=== PATIENT | female | born 1965 | race Caucasian/White ===

== ENCOUNTER 2017-09-30 16:28 | Emergency (ER) | payer BC ==
[2017-09-30] MEDS ORDERED: IV NORMAL SALINE 1,000ML 1,000 ML IV SCH (16:45)
[2017-09-30] MEDS ORDERED: INSULIN REGULAR 100 UNIT/ML 10ML VIAL. IV ONE (16:45)
[2017-09-30] MEDS ORDERED: 0.9 % SODIUM CHLORIDE 10 ML DISP.SYRIN. IV PRN (16:45)
[2017-09-30 17:20] LABS: BASO # 0.1 x10^3/uL (0.0-0.2); BASO % 1 % (0-3); EOS # 0.1 x10^3/uL (0.0-0.7); EOS % 1 % (0-3); HEMATOCRIT 43.9 % (36.0-47.0); HEMOGLOBIN 14.8 g/dL (12.0-15.5); LYMPH % 30 % (24-48); MEAN CORPUSCULAR HEMOGLOBIN 30 pg (25-35); MEAN CORPUSCULAR HGB CONC 34 g/dL (31-37); MEAN CORPUSCULAR VOLUME 88 fL (79-100); MONO # 0.6 x10^3/uL (0.0-1.1); MONO % 6 % (0-9); NEUT # 6.2 x10^3uL (1.8-7.7); NEUT % 62 % (31-73); PLATELET COUNT 372 x10^3/uL (140-400); RED BLOOD COUNT 5.01 x10^6/uL (3.50-5.40)
[2017-09-30 17:36] LABS: ALBUMIN 3.5 g/dL (3.4-5.0); ALBUMIN/GLOBULIN RATIO 0.9 (1.0-1.7); CALCIUM 9.5 mg/dL (8.5-10.1); GFR 58.7; POTASSIUM 4.1 mmol/L (3.5-5.1); TOTAL BILIRUBIN 0.3 mg/dL (0.2-1.0); TOTAL PROTEIN 7.3 g/dL (6.4-8.2)
--- NOTE | 2017-09-30 17:38 | PHYS DOC ---
Past History Past Medical History: Anxiety, Diabetes, Fibromyalgia, Hypertension, Hypothyroid, Other Past Surgical History: Cholecystectomy, Tonsillectomy, Tubal ligation, Other Alcohol Use: None Drug Use: None Adult General Chief Complaint Chief Complaint: HYPERGLYCEMIA HPI HPI 52-year-old female patient was seen by her primary care physician because of high blood sugar and Hbg A1c and sent to ER for treatment. Patient states she doesn't take blood sugar medication for more than one year because with forming make here feeling very bad. Denies nausea, vomiting, fever and chills, urinary problems, weakness, dizziness. Patient states her hemoglobin A1c was 14 and her blood sugar was more than 400 at doctor's office. Review of Systems Review of Systems Constitutional: Denies fever or chills [] Eyes: Denies change in visual acuity, redness, or eye pain [] HENT: Denies nasal congestion or sore throat [] Respiratory: Denies cough or shortness of breath [] Cardiovascular: No additional information not addressed in HPI [] GI: Denies abdominal pain, nausea, vomiting, bloody stools or diarrhea [] : Denies dysuria or hematuria [] Musculoskeletal: Denies back pain or joint pain [] Integument: Denies rash or skin lesions [] Neurologic: Denies headache, focal weakness or sensory changes [] Endocrine: Denies polyuria or polydipsia [] All other systems were reviewed and found to be within normal limits, except as documented in this note. Current Medications Current Medications Current Medications Medications (Trade) Dose Ordered Sig/Vargas Start Time Stop Time Status Last Admin Dose Admin Insulin Human Regular (NovoLIN R) 10 unit 1X ONCE 09/30/17 16:45 09/30/17 16:46 UNV 09/30/17 17:04 10 UNIT Sodium Chloride (Normal Saline Flush) 10 ml QSHIFT PRN 09/30/17 16:45 UNV Physical Exam Physical Exam Constitutional: Well developed, well nourished, no acute distress, non-toxic appearance. [] HENT: Normocephalic, atraumatic, bilateral external ears normal, oropharynx moist, no oral exudates, nose normal. [] Eyes: PERRLA, EOMI, conjunctiva normal, no discharge. [] Neck: Normal range of motion, no tenderness, supple, no stridor. [] Cardiovascular:Heart rate regular rhythm, no murmur [] Lungs & Thorax: Bilateral breath sounds clear to auscultation [] Abdomen: Bowel sounds normal, soft, no tenderness, no masses, no pulsatile masses. [] Skin: Warm, dry, no erythema, no rash. [] Back: No tenderness, no CVA tenderness. [] Extremities: No tenderness, no cyanosis, no clubbing, ROM intact, no edema. [] Neurologic: Alert and oriented X 3, normal motor function, normal sensory function, no focal deficits noted. [] Psychologic: Affect normal, judgement normal, mood normal. [] Current Patient Data Vital Signs Vital Signs Date Time Temp Pulse Resp B/P (MAP) Pulse Ox O2 Delivery O2 Flow Rate FiO2 09/30/17 16:35 98.6 101 16 95 Room Air Lab Results Laboratory Tests Test 09/30/17 16:39 09/30/17 16:54 Glucose (Fingerstick) 471 mg/dL (70-99) H White Blood Count 10.0 x10^3/uL (4.0-11.0) Red Blood Count 5.01 x10^6/uL (3.50-5.40) Hemoglobin 14.8 g/dL (12.0-15.5) Hematocrit 43.9 % (36.0-47.0) Mean Corpuscular Volume 88 fL (79-100) Mean Corpuscular Hemoglobin 30 pg (25-35) Mean Corpuscular Hemoglobin Concent 34 g/dL (31-37) Red Cell Distribution Width 14.0 % (11.5-14.5) Platelet Count 372 x10^3/uL (140-400) Neutrophils (%) (Auto) 62 % (31-73) Lymphocytes (%) (Auto) 30 % (24-48) Monocytes (%) (Auto) 6 % (0-9) Eosinophils (%) (Auto) 1 % (0-3) Basophils (%) (Auto) 1 % (0-3) Neutrophils # (Auto) 6.2 x10^3uL (1.8-7.7) Lymphocytes # (Auto) 3.0 x10^3/uL (1.0-4.8) Monocytes # (Auto) 0.6 x10^3/uL (0.0-1.1) Eosinophils # (Auto) 0.1 x10^3/uL (0.0-0.7) Basophils # (Auto) 0.1 x10^3/uL (0.0-0.2) Acetone Level Neg (NEG) EKG EKG [] Radiology/Procedures Radiology/Procedures [] Course & Med Decision Making Course & Med Decision Making Pertinent Labs studies reviewed. (See chart for details) Condition of patient in ER showed 52-year-old male patient sent from Dr. chiang because of blood sugar of more than 400 without taking her medication for diabetes. Patient had unremarkable physical exam. Blood sugar improved gradually with IV fluid and insulin to 240. Patient instructed to follow-up with her primary care physician tomorrow for starting diabetes mellitus treatment because she was not able to tolerate metformin and other medication for diabetes previously. [] See Dr. Calzada chart for details. Pt. requesting discharge. Review labs with pt. Will follow up with endocrine tomorrow. 1. DM - Hypergylcemia 2. Hx. Non- Compliance 3. Urine + elevated glucose and Amphetamine/Meth Dragon Disclaimer Dragon Disclaimer This electronic medical record was generated, in whole or in part, using a voice recognition dictation system. Departure Departure: Impression: Primary Impression: Hyperglycemia Additional Impressions: Uncontrolled diabetes mellitus Noncompliance with diabetes treatment Substance abuse Disposition: HOME, SELF-CARE (At 1810) Condition: IMPROVED Referrals: CEE SAVAGE APRN (PCP) Patient Instructions: 1800 Calorie Diet for Diabetes Meal Planning Additional Instructions: Follow-up with your primary care physician or special procedure tech tomorrow for starting diabetes mellitus treatment Drink plenty of liquids Return to ER if not getting better Problem Qualifiers SHERRY CALZADA MD Sep 30, 2017 17:38 RUBENS RUIZ MD Sep 30, 2017 18:49
[2017-09-30 18:14] LABS: BILIRUBIN,URINE NEG (NEG); CLARITY,URINE CLEAR; COLOR,URINE STRAW; GLUCOSE,URINE >=1000 mg/dL (NEG); NITRITE,URINE NEG (NEG); UROBILINOGEN,URINE 0.2 mg/dL (0.2 mg/dL)
[2017-09-30 18:15] LABS: BACTERIA,URINE FEW /HPF (0-FEW); RBC,URINE 0 /HPF (0-2); SQUAMOUS EPITHELIAL CELL,UR OCC /LPF; WBC,URINE OCC /HPF (0-4); YEAST,URINE PRESENT /HPF
[2017-09-30 18:17] VITALS: BP 148/83
[2017-09-30 18:28] LABS: BARBITURATES NEG (NEG); BENZODIAZEPINES NEG (NEG); CANNABINOIDS NEG (NEG); COCAINE NEG (NEG); METHADONE NEG (NEG); OPIATES NEG (NEG); PHENCYCLIDINE NEG (NEG)
[2017-09-30 18:37] LABS: AMPHETAMINE/METHAMPHETAMINE POS (NEG)
== END 2017-09-30 18:45 | disposition home or self-care (01) ==
LOC: ER 16:28
DX: E11.65 Type 2 diabetes mellitus with hyperglycemia (principal); Z91.19 Patient's noncompliance with other medical treatment and regimen; F19.10 Other psychoactive substance abuse, uncomplicated; E03.9 Hypothyroidism, unspecified; F41.9 Anxiety disorder, unspecified; I10 Essential (primary) hypertension; M79.7 Fibromyalgia
CPT/HCPCS: 36415; 80053; 80307; 81001; 82010; 82947; 85025; 96361; 96374; 99284; J1815; G0479; J7030